=== PATIENT | female | born 1960 | race Caucasian/White ===

== ENCOUNTER → 2017-10-26 | Outpatient (CLI) | payer OTHER | LOC: LAB 07:09 | PROVIDERS: ATTEND Anesthesiology | DX: Z01.812 Encounter for preprocedural laboratory examination (principal); Z01.810 Encounter for preprocedural cardiovascular examination | CPT/HCPCS: 36415; 82040; 82247; 82310; 82374; 82435; 82565; 82947; 84075; 84132; 84155; 84295; 84450; 84460; 84520 ==

== ENCOUNTER → 2017-10-30 | Outpatient (CLI) | payer OTHER ==
--- NOTE | 2017-10-31 08:51 | EKG ---
FACILITY: [facility] PATIENT NAME: BHAVANI MOSQUERA : [id number] MR: [id number] V: [id number] EXAM DATE: ORDERING PHYSICIAN: ALEN CLARK TECHNOLOGIST: KALYANI Test Reason : PRE OP Blood Pressure : / mmHG Vent. Rate : 074 BPM Atrial Rate : 074 BPM P-R Int : 162 ms QRS Dur : 082 ms QT Int : 374 ms P-R-T Axes : 064 072 -21 degrees QTc Int : 415 ms Sinus rhythm Nonspecific ST-T findings inferolateral leads Abnormal ECG No previous ECGs available Confirmed by DARIEN HERMAN ([id number]) on 10/31/2017 3:18:40 PM Referred By: EDUARDO Confirmed By:DARIEN HERMAN
== END ==
LOC: RESP 14:08
PROVIDERS: ATTEND Anesthesiology
DX: Z01.812 Encounter for preprocedural laboratory examination (principal); S52.502A Unspecified fracture of the lower end of left radius, initial encounter for closed fracture; R94.31 Abnormal electrocardiogram [ECG] [EKG]
CPT/HCPCS: 93005

== ENCOUNTER → 2018-09-12 | Outpatient (CLI) | payer BC, OTHER ==
--- NOTE | 2018-09-17 10:47 | RADIOLOGY IMAGING REPORT ---
FACILITY: [facility] [place] PATIENT NAME: BHAVANI MOSQUERA : [id number] MR: [id number] V: [id number] EXAM DATE: ORDERING PHYSICIAN: NOREEN BECERRA TECHNOLOGIST: Elsa Lala PROCEDURE: BILATERAL DIGITAL SCREENING MAMMOGRAM WITH CAD ASSISTED INTERPRETATION & 3D TOMOSYNTHESIS REASON FOR STUDY: Screening. FAMILY HISTORY OF BREAST CANCER: None. Family history of ovarian cancer: Mother at age 54. BREAST PROCEDURES/TREATMENTS: None. COMPARISON: 11/18/12, 07/11/11. VIEWS OBTAINED: 2D & 3D full field CC & MLO. BREAST DENSITY: The breasts are heterogeneously dense which can obscure small masses. MAMMOGRAM FINDINGS: There is an asymmetry in the lateral aspect of the Right breast on the Right CC view in the middle depth best appreciated on Tomographic slice 32. This appears to be in the upper portion of the Right breast on the Right MLO view best appreciated on Tomographic slice 21. Spot compression view and Right breast Ultrasound recommended for further evaluation. IMPRESSION: BIRADS 0: Incomplete. Additional views of the Right breast and Right breast Ultrasound recommended as described. DIAGNOSTIC CATEGORY 0--INCOMPLETE: NEED ADDITIONAL IMAGING EVALUATION. RECOMMENDATIONS: ADDITIONAL MAMMOGRAPHIC VIEWS REQUIRED: RIGHT BREAST. ULTRASOUND: RIGHT BREAST. Dictated by: Karla Chadwick M.D. on 09/16/2018 at 10:10 Transcribed by: LINO on 09/16/2018 at 13:40 Approved by: Karla Chadwick M.D. on 09/17/2018 at 10:46 [facility]
== END ==
LOC: MAMO 01:01
PROVIDERS: ATTEND Physician Assistant
DX: R92.2 Inconclusive mammogram (principal)
CPT/HCPCS: 77063; 77067

== ENCOUNTER → 2018-09-24 | Outpatient (CLI) | payer BC ==
--- NOTE | 2018-09-29 16:00 | RADIOLOGY IMAGING REPORT ---
FACILITY: [facility] [place] PATIENT NAME: BHAVANI MOSQUERA : [id number] MR: [id number] V: [id number] EXAM DATE: [id number] ORDERING PHYSICIAN: NOREEN BECERRA TECHNOLOGIST: Polo Quiros RDMS, RD PROCEDURE:US RIGHT BREAST PROCEDURE:RIGHT DIGITAL MAMMOGRAM DIAGNOSTIC WITH CAD ASSISTED INTERPRETATION & 3D TOMOSYNTHESIS REASON FOR STUDY: Call back from screening. COMPARISON STUDIES: 09/12/2018, 11/18/2012. MAMMOGRAM VIEWS OBTAINED: Right full ML 3D, Right CC & MLO Spot compression 3D. BREAST DENSITY: Scattered fibroglandular densities. MAMMOGRAM FINDINGS: The asymmetry in the Right breast somewhat persists on the CC view but is not well localized on the MLO or ML view. No concerning microcalcifications. ULTRASOUND AREA SCANNED: Right breast 8-10 o'clock position. ULTRASOUND FINDINGS: I personally scanned the patient No solid or cystic masses are seen. No concerning lesions in the Right breast. DIAGNOSTIC CATEGORY 1--NEGATIVE. RECOMMENDATIONS: ROUTINE MAMMOGRAM AND CLINICAL EVALUATION. IMPRESSION: BIRADS 1: Negative. Dictated by: Abelardo Cohen M.D. on 09/24/2018 at 15:49 Transcribed by: LINO on 09/25/2018 at 8:23 Approved by: Woodrow Valentino M.D. on 09/29/2018 at 15:58 [facility]
--- NOTE | 2018-09-29 16:00 | RADIOLOGY IMAGING REPORT ---
[place] [facility] [place] NAME: BHAVANI MOSQUERA : [id number] MR: [id number] V: [id number] EXAM DATE: [id number] ORDERING PHYSICIAN: NOREEN BECERRA TECHNOLOGIST: Juhi Guzman PROCEDURE:RIGHT DIGITAL MAMMOGRAM DIAGNOSTIC WITH CAD ASSISTED INTERPRETATION & 3D TOMOSYNTHESIS REASON FOR STUDY: Call back from screening. COMPARISON STUDIES: 09/12/2018, 11/18/2012. MAMMOGRAM VIEWS OBTAINED: Right full ML 3D, Right CC & MLO Spot compression 3D. BREAST DENSITY: Scattered fibroglandular densities. MAMMOGRAM FINDINGS: The asymmetry in the Right breast somewhat persists on the CC view but is not well localized on the MLO or ML view. No concerning microcalcifications. ULTRASOUND AREA SCANNED: Right breast 8-10 o'clock position. ULTRASOUND FINDINGS: I personally scanned the patient No solid or cystic masses are seen. No concerning lesions in the Right breast. DIAGNOSTIC CATEGORY 1--NEGATIVE. RECOMMENDATIONS: ROUTINE MAMMOGRAM AND CLINICAL EVALUATION. IMPRESSION: BIRADS 1: Negative. Dictated by: Abelardo Cohen M.D. on 09/24/2018 at 15:49 Transcribed by: LINO on 09/25/2018 at 8:23 Approved by: Woodrow Valentino M.D. on 09/29/2018 at 15:58 [facility]
== END ==
LOC: MAMO 00:53
PROVIDERS: ATTEND Physician Assistant
DX: R92.2 Inconclusive mammogram (principal)
CPT/HCPCS: 77061; 77065